=== PATIENT | male | born 1940 | race African-American/Black ===

== ENCOUNTER 2016-09-28 10:13 | Observation (INO) | payer MEDICARE, OTHER ==
[2016-09-28] VITALS (9 sets, daily range): BP systolic 142–166; BP diastolic 70–84; PULSE 65–79; RESP 16–21; TEMP 98.1–98.6; O2SAT 95–99
[~2016-09-28] VITALS: Ht 180.3 cm; Wt 88.0 kg
[~2016-09-28 10:13] MED LIST: ASPI81 PO; CAPOZ2515 PO; METO25 PO; NIFEDICAL XL; VIAG100T PO
[2016-09-28] MEDS ORDERED: MORPHINE SULFATE 4 MG/ML INJ IV PUSH ONE (10:30)
[2016-09-28] MEDS ORDERED: SODIUM CHLORIDE 0.9% FLUSH 10 ML FLUSH IVF PRN (10:30)
[2016-09-28] MEDS ORDERED: SODIUM CHLORID 0.9% 500 ML INJ 500 ML IV ONE (10:30)
[2016-09-28] MEDS ORDERED: NITROGLYCERIN 0.4 MG SL 25 TABS/BTL SL SCH (10:30)
[2016-09-28 11:00] LABS: BASOPHIL # 0.1 TH/MM3 (0-0.2); BASOPHIL % 1.2 % (0.0-2.0); EOSINOPHIL # 0.7 TH/MM3 (0-0.4); EOSINOPHIL % 11.3 % (0.0-4.0); HEMATOCRIT 41.4 % (39.0-51.0); HEMO FLAGS DIFF FINAL; LYMPH % 31.3 % (9.0-44.0); LYMPHOCYTE # 1.9 TH/MM3 (1.0-4.8); MEAN CELL VOLUME 96.2 FL (80.0-100.0); MEAN CORPUSCULAR HEMOGLOBIN 32.8 PG (27.0-34.0); MEAN CORPUSCULAR HGB CONC 34.1 % (32.0-36.0); MONO % 8.4 % (0.0-8.0); NEUT % 47.8 % (16.0-70.0); PLATELET COUNT 230 TH/MM3 (150-450); RED BLOOD COUNT 4.31 MIL/MM3 (4.50-5.90); RED CELL DISTRIBUTION WIDTH 13.5 % (11.6-17.2); WHITE BLOOD COUNT 6.2 TH/MM3 (4.0-11.0)
--- NOTE | 2016-09-28 11:06 | RADRPT ---
EXAM DATE/TIME: 09/28/2016 10:24 [facility] COMPARISON: No previous studies available for comparison. INDICATIONS : Left sided chest pain. MEDICAL HISTORY : Hypertension. Peptic ulcer. SURGICAL HISTORY : None. ENCOUNTER: Initial ACUITY: 2 days PAIN SCORE: 5/10 LOCATION: Left chest FINDINGS: A single view of the chest demonstrates the lungs to be symmetrically aerated without evidence of mas s, infiltrate or effusion. The cardiomediastinal contours are unremarkable. Osseous structures are intact. CONCLUSION: No acute disease. Saqib Godoy MD on September 28, 2016 at 11:02 Board Certified Radiologist. This report was verified electronically.
[2016-09-28 11:16] LABS: APTT (PATIENT) 26.8 SEC (24.3-30.1); PROTHROMBIN TIME - PATIENT 10.6 SEC (9.8-11.6)
[2016-09-28 11:19] LABS: ANION GAP 9 MEQ/L (5-15); BICARBONATE 28.4 MEQ/L (21.0-32.0); BLOOD UREA NITROGEN 12 MG/DL (7-18); CHLORIDE 102 MEQ/L (98-107); GLOMERULAR FILTRATION RATE 67 ML/MIN (>89); MAGNESIUM 2.2 MG/DL (1.5-2.5); POTASSIUM 3.5 MEQ/L (3.5-5.1); SODIUM (NA) 139 MEQ/L (136-145)
[2016-09-28 11:23] LABS: CREATINE KINASE 188 U/L (39-308)
[2016-09-28 11:35] LABS: CKMB LESS THAN 0.5 NG/ML (0.5-3.6)
--- NOTE | 2016-09-28 12:00 | PD ---
HPI Chief Complaint: Cardiac Complaint Time Seen by Provider: 10:22 Travel History International Travel<30 days: No Contact w/Intl Traveler<30days: No Traveled to known affect area: No History of Present Illness HPI 76-year-old male arrives to the ER with left chest pain. There is a pleuritic component. There is radiation to the left arm. It started yesterday after a severe coughing spell followed by loss of consciousness and a fall. He also reports shortness of breath. The pains 10 over 10 minutes worst. He has hypertension and hyperlipidemia. He has no smoking history. There is no significant family history of coronary artery disease. He reports an exertional component. PFSH Past Medical History Arthritis: No Asthma: No Autoimmune Disease: No Blood Disorders: No Anxiety: Yes Depression: No Heart Rhythm Problems: No Cancer: No Cardiovascular Problems: Yes High Cholesterol: No Chemotherapy: No Chest Pain: Yes Congestive Heart Failure: No COPD: No Cerebrovascular Accident: No Diabetes: No Diminished Hearing: No Endocrine: No Gastrointestinal Disorders: Yes GERD: Yes Glaucoma: No Genitourinary: No Headaches: No Hepatitis: No Hiatal Hernia: No Hypertension: Yes Immune Disorder: No Kidney Stones: No Musculoskeletal: Yes Neurologic: No Psychiatric: Yes Reproductive: No Respiratory: Yes Myocardial Infarction: No Radiation Therapy: No Renal Failure: No Seizures: No Sickle Cell Disease: No Sleep Apnea: No Thyroid Disease: No Ulcer: Yes (HX. OF PEPTIC ULCER) Past Surgical History Abdominal Surgery: Yes (GASTRIC ULCER REPAIR) AICD: No Cardiac Surgery: No Coronary Artery Bypass Graft: No Ear Surgery: No Endocrine Surgery: No Eye Surgery: No Genitourinary Surgery: No Gynecologic Surgery: No Joint Replacement: No Oral Surgery: No Pacemaker: No Thoracic Surgery: No Other Surgery: Yes (SURGERY FOR PEPTIC ULCER) Family History Family Myocardial Infarction: Yes Social History Alcohol Use: Yes (OCCASIONAL) Tobacco Use: No Substance Use: No Allergies-Medications (Allergen,Severity, Reaction): Coded Allergies: SHIVA Inhibitors (Verified Allergy, Severe, EDEMA, 09/28/16) Reported Meds & Prescriptions Reported Meds & Active Scripts Active Reported [Nifedical Xl] 120 Mg DAILY Review of Systems Except as stated in HPI: all other systems reviewed are Neg General / Constitutional: No: Fever Cardiovascular: Positive: Chest Pain or Discomfort Physical Exam Narrative GENERAL: 76-year-old male well-nourished well-developed pleasant SKIN: Focused skin assessment warm/dry. HEAD: Atraumatic. Normocephalic. EYES: Pupils equal and round. No scleral icterus. No injection or drainage. ENT: No nasal bleeding or discharge. Mucous membranes pink and moist. NECK: Trachea midline. No JVD. CARDIOVASCULAR: Regular rate and rhythm. No murmur appreciated. Tenderness palpation left chest wall. No gross deformity of the affected area. RESPIRATORY: No accessory muscle use. Clear to auscultation. Breath sounds equal bilaterally. GASTROINTESTINAL: Abdomen soft, non-tender, nondistended. Hepatic and splenic margins not palpable. MUSCULOSKELETAL: No obvious deformities. No clubbing. No cyanosis. No edema. NEUROLOGICAL: Awake and alert. No obvious cranial nerve deficits. Motor grossly within normal limits. Normal speech. PSYCHIATRIC: Appropriate mood and affect; insight and judgment normal. Data Data Last Documented VS Vital Signs Date Time Temp Pulse Resp B/P Pulse Ox O2 Delivery O2 Flow Rate FiO2 09/28/16 13:14 67 16 166/77 99 Nasal Cannula 2 09/28/16 10:20 98.1 Vital signs reviewed Orders Electrocardiogram (09/28/16 ) Basic Metabolic Panel (Bmp) (09/28/16 10:28) Ckmb (Isoenzyme) Profile (09/28/16 10:28) Complete Blood Count With Diff (09/28/16 10:28) Magnesium (Mg) (09/28/16 10:28) Prothrombin Time / Inr (Pt) (09/28/16 10:28) Act Partial Throm Time (Ptt) (09/28/16 10:28) Troponin I (09/28/16 10:28) Chest, Single Ap (09/28/16 10:28) Ecg Monitoring (09/28/16 10:28) Iv Access Insert/Monitor (09/28/16 10:28) Oximetry (09/28/16 10:28) Oxygen Administration (09/28/16 10:28) Morphine Inj (Morphine Inj) (09/28/16 10:30) Sodium Chloride 0.9% Flush (Ns Flush) (09/28/16 10:30) Nitroglycerin Sl (Nitrostat Sl) (09/28/16 10:30) Sodium Chlorid 0.9% 500 Ml Inj (Ns 500 M (09/28/16 10:30) D-Dimer (09/28/16 10:28) CKMB (09/28/16 10:50) CKMB% (09/28/16 10:50) Ct Pulmonary Angiogram (09/28/16 11:48) Iohexol 350 Inj (Omnipaque 350 Inj) (09/28/16 13:06) Electrocardiogram (09/28/16 12:16) Admit Order (Ed Use Only) (09/28/16 13:20) Activity Bed Rest With Brp (09/28/16 13:20) Vital Signs (Adult) Q4H (09/28/16 13:20) Cardiac Rhythm .As Directed (09/28/16 13:20) Notify Dr: Other .PRN (09/28/16:20) Notify Parameters (09/28/16 13:20) Resp Oxygen Nasal Cannula (09/28/16 ) Ckmb (Isoenzyme) Profile (09/28/16 13:20) Ckmb (Isoenzyme) Profile (09/28/16 16:20) Troponin I (09/28/16 13:20) Troponin I (09/28/16 16:20) Electrocardiogram (09/28/16 13:20) Electrocardiogram (09/28/16 16:20) ^ Obtain (09/28/16 13:20) Acetaminophen (Tylenol) (09/28/16 13:30) Acetamin-Hydrocod 325-7.5 Mg ([place] 7.5 (09/28/16 13:30) Morphine Inj (Morphine Inj) (09/28/16 13:30) Ondansetron Inj (Zofran Inj) (09/28/16 13:30) Nitroglycerin Sl (Nitrostat Sl) (09/28/16 13:30) Aspirin (Aspirin) (09/29/16 09:00) Temazepam (Restoril) (09/28/16 13:30) Alprazolam (Xanax) (09/28/16 13:30) Wax Specialist / Telemetry MINH.Q8H (09/28/16 13:20) Labs Laboratory Tests Test 09/28/16 10:50 White Blood Count 6.2 TH/MM3 Red Blood Count 4.31 MIL/MM3 Hemoglobin 14.1 GM/DL Hematocrit 41.4 % Mean Corpuscular Volume 96.2 FL Mean Corpuscular Hemoglobin 32.8 PG Mean Corpuscular Hemoglobin 34.1 % Concent Red Cell Distribution Width 13.5 % Platelet Count 230 TH/MM3 Mean Platelet Volume 9.5 FL Neutrophils (%) (Auto) 47.8 % Lymphocytes (%) (Auto) 31.3 % Monocytes (%) (Auto) 8.4 % Eosinophils (%) (Auto) 11.3 % Basophils (%) (Auto) 1.2 % Neutrophils # (Auto) 3.0 TH/MM3 Lymphocytes # (Auto) 1.9 TH/MM3 Monocytes # (Auto) 0.5 TH/MM3 Eosinophils # (Auto) 0.7 TH/MM3 Basophils # (Auto) 0.1 TH/MM3 CBC Comment DIFF FINAL Differential Comment Prothrombin Time 10.6 SEC Prothromb Time International 1.0 RATIO Ratio Activated Partial 26.8 SEC Thromboplast Time D-Dimer Quantitative (PE/DVT) 1.52 MG/L FEU Sodium Level 139 MEQ/L Potassium Level 3.5 MEQ/L Chloride Level 102 MEQ/L Carbon Dioxide Level 28.4 MEQ/L Anion Gap 9 MEQ/L Blood Urea Nitrogen 12 MG/DL Creatinine 1.27 MG/DL Estimat Glomerular Filtration 67 ML/MIN Rate Random Glucose 95 MG/DL Calcium Level 9.0 MG/DL Magnesium Level 2.2 MG/DL Total Creatine Kinase 188 U/L Creatine Kinase MB LESS THAN 0.5 NG/ML Troponin I LESS THAN 0.02 NG/ML MDM Medical Decision Making Medical Screen Exam Complete: Yes Emergency Medical Condition: Yes Medical Record Reviewed: Yes Differential Diagnosis NSTEMI, unstable angina, coronary vasospasm, PE, PTX, aortic dissection, pericarditis, myocarditis, endocarditis, PNA, esophageal disease, aneurysm, musculoskeletal etiologies, anxiety, cocaine/sympathomimetic abuse Narrative Course CBC & BMP Diagram 09/28/16 10:50 Troponin less than 0.02 D-dimer 1.52 INR 1.0 EKG reveals a sinus rhythm with a rate of 66 right bundle branch block pattern with a left anterior fascicular block pattern (stable since 2008) Last [address] Angiography 09/28/16 1148 Signed Impressions: Service Date/Time: Wednesday, September 28, 2016 12:55 - CONCLUSION: 1. Scattered low-density lesions in the liver thought to be cyst 2. There is no central pulmonary emboli. Nile Hurst MD FACR Chest X-Ray 09/28/16 1028 Signed Impressions: Service Date/Time: Wednesday, September 28, 2016 10:24 - CONCLUSION: No acute disease. Saqib Godoy MD Chest pain center considered most reasonable next step for the patient. Diagnosis Primary Impression: Chest pain Qualified Code: R07.9 - Chest pain, unspecified type Admitting Information Admitting Physician Requests: Harsh Johnson MD September 28, 2016 12:00
--- NOTE | 2016-09-28 12:00 | EKG ---
Date Performed: 09/28/2016 Time Performed: 10:24:44 PTAGE: 76 years EKG: Sinus rhythm RIGHT BUNDLE BRANCH BLOCK LEFT ANTERIOR FASCICULAR BLOCK ABNORMAL ECG COMPARED TO PRIOR ELECTROCARDI OGRAM, Prior electrocardiogram has marked artifact although I think there is probably not a significa nt change. PREVIOUS TRACING : 09/28/2008 17.13 DOCTOR: Tyler Parnell Interpretating Date/Time 09/28/2016 11:58:15
[2016-09-28] MEDS ORDERED: IOHEXOL 350 MG/ML 10 ML VIAL (for RAD DIAG) IV ONE (13:06)
--- NOTE | 2016-09-28 13:29 | RADRPT ---
EXAM DATE/TIME: 09/28/2016 12:55 [facility] COMPARISON: No previous studies available for comparison. INDICATIONS : Chest pains, evaluate for pulmonary embolism. IV CONTRAST: 73 cc Omnipaque 350 (iohexol) IV RADIATION DOSE: 23.22 CTDIvol (mGy) MEDICAL HISTORY : Cardiovascular disease. Hypertension. SURGICAL HISTORY : Gastic repair. ENCOUNTER: Initial ACUITY: 2 days PAIN SCALE: 7/10 LOCATION: Left chest TECHNIQUE: Volumetric scanning of the chest was performed using a pulmonary embolism protocol MIP images were re constructed. Using automated exposure control and adjustment of the mA and/or kV according to patien t size, radiation dose was kept as low as reasonably achievable to obtain optimal diagnostic quality images. FINDINGS: There is mild interstitial prominence with cardiomegaly suggesting mild failure. There is no radiogr aphically significant axillary adenopathy. There is minimal nonspecific mediastinal adenopathy. The re is good visualization of the central pulmonary vessels. There is no central pulmonary emboli. Scattered low-density lesions are present in the liver thought to be simple cyst CONCLUSION: 1. Scattered low-density lesions in the liver thought to be cyst 2. There is no central pulmonary emboli. Nile Hurst MD FACR on September 28, 2016 at 13:12 Board Certified Radiologist. This report was verified electronically.
[2016-09-28] MEDS ORDERED: ALPRAZolam 0.25 MG TAB PO PRN (13:30)
[2016-09-28] MEDS ORDERED: TEMAZEPAM 15 MG CAP PO PRN (13:30)
[2016-09-28] MEDS ORDERED: ACETAMINOPHEN 500 MG CPLT PO PRN (13:30)
[2016-09-28] MEDS ORDERED: MORPHINE SULFATE 4 MG/ML INJ IV PRN (13:30)
[2016-09-28] MEDS ORDERED: ONDANSETRON HCL 4 MG/2 ML VIAL IV PRN (13:30)
[2016-09-28] MEDS ORDERED: NITROGLYCERIN 0.4 MG SL 25 TABS/BTL SL PRN (13:30)
[2016-09-28] MEDS ORDERED: ACETAMINOPHEN/HYDROcodone 325 MG/7.5 MG TAB PO PRN (13:30)
--- NOTE | 2016-09-28 14:56 | HHI.HP ---
HPI Primary Care Physician Gaetano Christian MD Chief Complaint Chest pain History of Present Illness 76-year-old male with known hypertension and hyperlipidemia presents to the emergency room for further evaluation of chest pain. States yesterday a.m. while drinking coffee he became strangled and coughed for many minutes. States he coughs so severely he then experienced a quick, severe stabbing pain rated 10 /10 that made him fall to the floor. Location under left breast and left anterior chest. No radiation of pain. Did not hit his head or lose consciousness. No associated symptoms such as nausea, vomiting, or diaphoresis. After falling he quickly stood up and since this time he has had dull "aching" pain accompanied with quick, sharp pains when taking deep breaths , repositioning, or certain movements such as twisting. Patient called his primary care providers office this morning regarding persistent pain. He was directed to come to the emergency room for further evaluation. Review of Systems General: No fatigue,weakness, fever, chills, recent illness, or change in appetite. In fact, he's been in his general state of health and feels well aside from current left-sided chest pain. Endorses he is normally active and does not develop any chest discomfort with exertion. HEENT: No NICOLAS, no dysphasia. CV: As stated above. No palpitations, intermittent leg pain, dizziness RESP: Positive for recent coughing episode yesterday morning after choking on coffee. No SOB, cough, wheeze, or recent URI. GI: No nausea, vomiting, bowel changes, diarrhea, constipation, pain, distention. : No dysuria, urgency, frequency EXT: No lower leg edema, no paraesthesias MS: As stated above. Endorses certain twisting movements, sifting himself from bed to standing, palpation, or deep breathing makes pain worse. No change in ROM NEURO: No change in memory, dizziness, difficulty with balance, LOC, motor/ sensory deficits PSYCH: No anxiety or depression SKIN: No rashes, no concerning lesions Past Family Social History Allergies: Coded Allergies: SHIVA Inhibitors (Verified Allergy, Severe, EDEMA, 09/28/16) Past Medical History Hypertension, hyperlipidemia, GERD, diverticulitis Past Surgical History Peptic ulcer [id number] Reported Medications Active Reported [Nifedical Xl] 120 Mg DAILY Active Ordered Medications Current Medications Medications (Trade) Dose Ordered Sig/Vickie Route Start Time Stop Time Status Last Admin (Tylenol) 500 mg Q4H PRN PO 09/28/16 13:30 ([place] 7.5-325 Mg) 1 tab Q4H PRN PO 09/28/16 13:30 (Morphine Inj) 2 mg Q4H PRN IV 09/28/16 13:30 (Zofran Inj) 4 mg Q6H PRN IV 09/28/16 13:30 (Nitrostat Sl) 0.4 mg Q5M PRN SL 09/28/16 13:30 (Restoril) 15 mg HS PRN PO 09/28/16 13:30 (Xanax) 0.25 mg Q8H PRN PO 09/28/16 13:30 (NS Flush) 2 ml BID IV FLUSH 09/28/16 21:00 (Aspirin) 325 mg DAILY PO 09/29/16 09:00 Family History Significant for early onset cardiovascular disease. 3 brothers from massive MA in their 50s. Social History Known hypertension and hyperlipidemia. No known diabetes. Endorses he was a 2 pack daily smoker for 20+ years, then cutting back to a few cigarettes daily. He quit smoking cigarettes 5 years ago. Endorses smoking marijuana currently. Denies any alcohol. Retired, , and somewhat sedentary. Past cardiac testing No recent stress testing. 09/29/08-treadmill stress test unremarkable, walked 9 minutes. 09/03/06-treadmill stress test unremarkable, walked 4 minutes 31 seconds. 09/05/05-Ladonna scan results showed fixed defect of inferior wall with normal wall function, ejection fraction 54%. This test was completed after 2 brothers within 1 week of a each other from myocardial infarctions, therefore he requested a cardiac catheterization. 09/07/15-cardiac catheterization normal coronary arteries, normal LVF, ejection fraction 55%. Physical Exam Vital Signs Vital Signs Date Time Temp Pulse Resp B/P Pulse Ox O2 Delivery O2 Flow Rate FiO2 09/28/16 14:15 67 20 145/73 99 09/28/16 13:38 97 Nasal Cannula 3.00 09/28/16 13:14 67 16 166/77 99 Nasal Cannula 2 09/28/16 12:24 16 09/28/16 12:23 65 17 142/70 98 Nasal Cannula 2 09/28/16 11:19 70 20 149/75 Room Air 09/28/16 10:42 21 95 Room Air 09/28/16 10:42 95 Room Air 09/28/16 10:20 98.1 67 21 158/79 98 09/28/16 10:14 98.6 70 20 163/84 95 Room Air Physical Exam GENERAL: Alert WN, WD, NAD, pleasant, male HEAD: NC, AT EYES: Sclera clear, conjunctiva without injection, pupils equal and round ENT: Mucous membranes pink and moist, no nasal discharge or bleeding NECK: Supple, no masses, trachea midline CV: RRR, without murmur, rub, gallop, no JVD, S1-S2 no S3-S4. RESP: Clear lungs bilateral upper lobes, diminished lateral bases, no crackles, wheeze, rhonchi, symmetrical chest rise, nonlabored, able to speak in full sentences ABD: Soft, NT, ND, no masses, positive bowel tones EXT: Pulses +24, no dependent edema MS: Left chest wall reproducible pain with palpation. Normal tone 4 extremities, no obvious deformities, full range of motion NEURO: CN II through CN XII grossly intact, motor strength 5/5, gait WNL PSYCH: A+O 3, pleasant affect, appropriate speech, appropriate mood and affect , insight and judgment SKIN: Normal turgor, normal texture, no lesions, no rashes Laboratory Laboratory Tests Test 09/28/16 10:50 White Blood Count 6.2 Red Blood Count 4.31 Hemoglobin 14.1 Hematocrit 41.4 Mean Corpuscular Volume 96.2 Mean Corpuscular Hemoglobin 32.8 Mean Corpuscular Hemoglobin 34.1 Concent Red Cell Distribution Width 13.5 Platelet Count 230 Mean Platelet Volume 9.5 Neutrophils (%) (Auto) 47.8 Lymphocytes (%) (Auto) 31.3 Monocytes (%) (Auto) 8.4 Eosinophils (%) (Auto) 11.3 Basophils (%) (Auto) 1.2 Neutrophils # (Auto) 3.0 Lymphocytes # (Auto) 1.9 Monocytes # (Auto) 0.5 Eosinophils # (Auto) 0.7 Basophils # (Auto) 0.1 CBC Comment DIFF FINAL Differential Comment Prothrombin Time 10.6 Prothromb Time International 1.0 Ratio Activated Partial 26.8 Thromboplast Time D-Dimer Quantitative (PE/DVT) 1.52 Sodium Level 139 Potassium Level 3.5 Chloride Level 102 Carbon Dioxide Level 28.4 Anion Gap 9 Blood Urea Nitrogen 12 Creatinine 1.27 Estimat Glomerular Filtration 67 Rate Random Glucose 95 Calcium Level 9.0 Magnesium Level 2.2 Total Creatine Kinase 188 Creatine Kinase MB LESS THAN 0.5 Troponin I LESS THAN 0.02 Result Diagram: 09/28/16 1050 09/28/[address] Angiography 09/28/16 1148 Signed Impressions: Service Date/Time: Wednesday, September 28, 2016 12:55 - CONCLUSION: 1. Scattered low-density lesions in the liver thought to be cyst 2. There is no central pulmonary emboli. Nile Hurst MD FACR Chest X-Ray 09/28/16 1028 Signed Impressions: Service Date/Time: Wednesday, September 28, 2016 10:24 - CONCLUSION: No acute disease. Saqib Godoy MD Course EKGs 2 EKGs show normal sinus rhythm, right bundle branch block, left anterior fascicular block (EKGs have been compared with previous EKGs and this is not a new finding) Assessment and Plan Assessment and Plan #1 Chest painadmitted to chest pain center. Chest pain center protocol initiated including 3 sets of cardiac enzymes and EKGs. Discussed with patient chest pain is clearly musculoskeletal in nature, therefore discharge home this afternoon most likely. This will be determined by Dr. Kathy Arce after he has seen and evaluated. Patient is agreeable to this plan of care. #2 Musculoskeletal painToradol 30 mg IV 1 dose. 5 days prescription strength Aleve will be provided upon discharge. Encouraged after 5 days prescription strength Aleve and to use [id number] Aleve for 5 days if pain persists. Instructed to take naproxen with food. Follow with PCP. 15:05-patient seen and evaluated by Dr. Kathy Arce. No further stress testing required at this time. Will be discharged later this afternoon. Patient agreeable to the plan a care. Mary Taylor September 28, 2016 14:56
[2016-09-28] MEDS ORDERED: KETOROLAC TROMETHAMINE 30 MG/ML (IVP) VIAL IV PUSH ONE (15:00)
[2016-09-28 15:14] LABS: CREATINE KINASE 179 U/L (39-308)
[2016-09-28 15:27] LABS: CKMB 0.5 NG/ML (0.5-3.6)
--- NOTE | 2016-09-28 15:45 | HHI.DCPOC ---
Discharge Care Plan Diagnosis: (1) Musculoskeletal chest pain Goals to Promote Your Health * To prevent worsening of your condition and complications * To maintain your health at the optimal level Directions to Meet Your Goals Take your medications as prescribed Follow your dietary instruction Follow activity as directed Keep your appointments as scheduled Take your immunizations and boosters as scheduled If your symptoms worsen call your PCP, if no PCP go to Urgent Care Center or Emergency Room Smoking is Dangerous to Your Health. Avoid second hand smoke Call the 24-hour hour crisis hotline for domestic abuse at Mary Taylor September 28, 2016 15:45
[2016-09-28] MEDS ORDERED: NAPR500T PO (15:48)
[2016-09-28] MEDS ORDERED: SODIUM CHLORIDE 0.9% FLUSH 10 ML FLUSH IV FLUSH SCH (21:00)
[2016-09-29] MEDS ORDERED: ASPIRIN 325 MG TAB PO SCH ×2 (09:00)
--- NOTE | 2016-09-29 13:51 | EKG ---
Date Performed: 09/28/2016 Time Performed: 12:30:54 PTAGE: 76 years EKG: Sinus rhythm RIGHT BUNDLE BRANCH BLOCK LEFT ANTERIOR FASCICULAR BLOCK Since previous tracing, no significant escobar ge noted ABNORMAL ECG PREVIOUS TRACING : 09/28/2016 10.24 DOCTOR: Melyssa Leon Interpretating Date/Time 09/29/2016 13:50:51
== END 2016-09-28 17:02 | disposition home or self-care (01) ==
LOC: NEPC 10:13 → NEDA 13:23 → INTOOBSV 13:23 → NEPGCP 14:44 → UNDODISIN 17:02
PROVIDERS: ADMIT Internal Medicine Interventional Cardiology; ATTEND Internal Medicine Interventional Cardiology
DX: R07.89 Other chest pain (principal); I45.2 Bifascicular block; I10 Essential (primary) hypertension; E78.5 Hyperlipidemia, unspecified; K21.9 Gastro-esophageal reflux disease without esophagitis; M79.1 Myalgia; F12.90 Cannabis use, unspecified, uncomplicated; F17.210 Nicotine dependence, cigarettes, uncomplicated; Z87.11 Personal history of peptic ulcer disease
CPT/HCPCS: 71010; 71275; 80048; 82550; 82552; 83735; 84484; 85025; 85379; 85610; 85730; 93005; 96361; 96374; 99285; G0378; J1885; J2270; J7040; Q9967